=== PATIENT | female | born 2000 | race Hispanic/Latino ===

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

== ENCOUNTER 2024-02-03 11:31 | Emergency (ER) | payer OTHER ==
[2024-02-03] MEDS ORDERED: Dicyclomine 20 MG/2 ML VIAL ONE (11:56)
[2024-02-03] MEDS ORDERED: Mag-Al Plus 1200/1200/120 MG (30 mL) UDCUP ONE (11:56)
[2024-02-03] MEDS ORDERED: Lidocaine 2% Viscous 100 ML BOTTLE ONE (11:56)
[2024-02-03 12:53] LABS: #Basophils 0.1 thou/uL (0.0-0.2); #Eosinophils 0.1 thou/uL (0.0-0.7); #Lymphocytes 1.8 thou/uL (1.20-3.40); #Monocytes 0.7 thou/uL (0.11-0.59); #Neutrophils 10.8 thou/uL (1.40-6.50); %Basophils 0.6 % (0.0-1.0); %Eosinophils 0.7 % (0.0-10.0); %Lymphocytes 13.3 % (21.0-51.0); %Monocytes 5.2 % (0.0-10.0); %Neutrophils 80.3 % (42.0-75.0); Hematocrit 38.6 % (36.0-47.0); Hemoglobin 12.9 g/dL (12.0-16.0); Mean Corpuscular HGB CONC 33.4 g/dL (32.0-36.0); Mean Corpuscular Hemoglobin 28.4 pg (27.0-31.0); Mean Corpuscular Volume 85.1 fl (78.0-98.0); Mean Platelet Volume 8.9 fL (7.4-10.4); Platelet Count 261 10x3/uL (130-400); RBC Distribution Width 12.1 % (11.5-14.5); Red Blood Cell (RBC) Count 4.54 mill/uL (4.20-5.40); White Blood Cell (WBC) Count 13.5 10x3/uL (4.8-10.8)
[2024-02-03 12:57] LABS: Bilirubin Negative (Negative); Blood, Urine Trace (Negative); Clarity Clear (Clear); Glucose, Urine (Dipstick) Negative (Negative); Ketone, Urine Negative (Negative); Leukocyte Negative (Negative); Nitrite Negative (Negative); Protein, Urine (Dipstick) Negative (Neg-Trace); Urobilinogen 0.2 mg/dL (Less than 2)
[2024-02-03 12:58] LABS: ALT (SGPT) 23 U/L (8-55); AST (SGOT) 9 U/L (5-34); Albumin 3.2 g/dL (3.5-5.0); Alkaline Phosphatase 78 U/L (40-110); Anion Gap 12 mmol/L (10-20); BUN (Urea Nitrogen) 9 mg/dL (7.0-18.7); Bilirubin, Total 0.4 mg/dL (0.2-1.2); Calc. Creatinine Clearance 0 mL/min (70-130); Calcium 8.7 mg/dL (7.8-10.44); Carbon Dioxide 24 mmol/L (22-29); Chloride 105 mmol/L (98-107); Estimated GFR 124; Globulin 3.1 g/dL (2.4-3.5); Glucose 126 mg/dL (70-105); Lipase 9 U/L (8-78); Potassium 3.8 mmol/L (3.5-5.1); Protein, Total 6.3 g/dL (6.0-8.3); Sodium 137 mmol/L (136-145)
[2024-02-03 12:59] LABS: BHCG - Serum Negative (NEGATIVE); Pregs Control Bar Appear? YES (CONTROL BAR)
[2024-02-03 13:32] LABS: CAUTI Indications for Culture Pelvic or flank pain; RBC/HPF 0-3 HPF (0-3); WBC/HPF 0-3 HPF (0-3)
[2024-02-03 13:33] LABS: Bacteria/HPF 1+ HPF (None Seen)
[2024-02-03 13:34] LABS: Transitional Epithelial 0-3 HPF (None Seen); Trichomonas/HPF 1+ HPF (None Seen)
[2024-02-03 13:35] LABS: Urine Culture Reflex No No
[2024-02-05 06:09] LABS: Chlam.trachomatis by PCR,Urine Not Detected (NotDetected); GC N.gonorrhoeae PCR,UrineVOID Not Detected (NotDetected)
== END 2024-02-03 14:22 | disposition home or self-care (01) ==
LOC: NAV ERS 11:31
DX: A59.9 Trichomoniasis, unspecified (principal)
CPT/HCPCS: 36415; 74176; 80053; 81001; 83690; 84703; 85025; 87491; 87591; 96372

== ENCOUNTER 2024-07-17 07:47 | Emergency (ER) | payer OTHER | END 2024-07-17 08:56 | disposition home or self-care (01) | LOC: NAV ERS 07:47 | DX: J20.9 Acute bronchitis, unspecified (principal) | CPT/HCPCS: 87081; 87428; 87430; 99283 ==